=== PATIENT | female | born 1960 | race Caucasian/White ===

== ENCOUNTER → 2017-03-18 | Outpatient (CLI) | payer OTHER | LOC: FIMAGING 15:17 | PROVIDERS: ATTEND Family Medicine | DX: Z12.31 Encounter for screening mammogram for malignant neoplasm of breast (principal) | CPT/HCPCS: G0202 ==

== ENCOUNTER 2017-06-22 05:59 | Day surgery (SDC) | payer OTHER ==
[2017-06-22] MEDS ORDERED: LR 1,000 ML IV ONE (06:12)
[2017-06-22] MEDS ORDERED: LIDOCAINE 1% 2 ML INJ ID PRN (06:12)
[2017-06-22 06:21] VITALS: PULSE 59
--- NOTE | 2017-06-22 06:52 | PDGENHP ---
History & Physical Chief Complaint: Left thumb CMCJ arthritis History of Present Illness: Mahnaz is a pleasant 56 year old female with bilateral CMCJ pain. She has undergone conservative treatment and is now wishing to proceed with left thumb CMCJ arthroplasty. Pertinent Past, Social, Family History: Non-contributory Relevant Physical Exam: TTP overlying bilateral CMCJ (L>R). +CMCJ grind bilateral (L>R) Cardiorespiratory Assessment: CTAB Roberto. RRR
[2017-06-22] MEDS ORDERED: LIDOCAINE 1% 300 MG/30 ML SDV ONE (06:56)
[2017-06-22] MEDS ORDERED: BUPIVACAINE 0.5% 30 ML SDV ONE (06:57)
[2017-06-22] MEDS ORDERED: PROPOFOL 200 MG/20 ML VIAL ONE (06:59)
[2017-06-22] MEDS ORDERED: fentaNYL 100 MCG/2 ML INJ ONE ×3 (06:59→08:54)
[2017-06-22] MEDS ORDERED: ceFAZolin 2 GM/DEXTROSE 100 ML IV ONE (07:00)
[2017-06-22] MEDS ORDERED: LIDOCAINE 2% 5 ML SDV ONE (07:07)
[2017-06-22] MEDS ORDERED: ONDANSETRON 4 MG/2 ML VIAL ONE ×2 (07:07→11:13)
[2017-06-22] MEDS ORDERED: MIDAZOLAM 2 MG/2 ML VIAL ONE (07:07)
[2017-06-22] MEDS ORDERED: DEXAMETHASONE 4 MG/ML VIAL ONE (07:07)
[2017-06-22] MEDS ORDERED: MIDAZOLAM 2 MG/2 ML VIAL IVP ONE (07:08)
--- NOTE | 2017-06-22 07:11 | PDANEPAE ---
ANE History of Present Illness left thumb repair ANE Past Medical History - Cardiovascular History Hx Hypertension: No Hx Arrhythmias: No Hx Chest Pain: No Hx Coronary Artery / Peripheral Vascular Disease: No Hx CHF / Valvular Disease: No Hx Palpitations: No - Pulmonary History Hx COPD: No Hx Asthma/Reactive Airway Disease: No Hx Recent Upper Respiratory Infection: No Hx Oxygen in Use at Home: No Hx Sleep Apnea: No Sleep Apnea Screening Result - Last Documented: Negative - Neurologic History Hx Cerebrovascular Accident: No Hx Seizures: No Hx Dementia: No - Endocrine History Hx Diabetes: No Endocrine History Comment: Takes levothyroxine - Renal History Hx Renal Disorders: No - Neurological & Psychiatric Hx Hx Neurological and Psychiatric Disorders: No - Cancer History Hx Cancer: No - GI History GERD: no Hx Gastrointestinal Disorders: No - Other Health History Other Health History: none - Chronic Pain History Chronic Pain: No - Surgical History Prior Surgeries: spinal injection, L4L5 lami ANE Review of Systems Review of Systems: - Exercise capacity METS (RN): 5 METS ANE Patient History - Allergies Allergies/Adverse Reactions: amoxicillin [Amoxicillin] Allergy (Mild, Verified 06/03/14 05:44) Rash - Home Medications Home medications: home medication list seen and reviewed Home Medications: Levothyroxine 06/03/14 [Last Taken 06/21/17] Valtrex 06/03/14 [Last Taken 06/22/17] Diclofenac Sodium 1% 05/25/17 [Last Taken 06/15/17] - NPO status NPO Since - Liquids (Date): 06/21/17 NPO Since - Liquids (Time): 23:00 NPO Since - Solids (Date): 06/21/17 NPO Since - Solids (Time): 18:00 - Anes Hx Anes Hx: no prior problems - Smoking Hx Smoking Status: Never smoked - Family Anes Hx Family Hx Anesthesia Complications: none ANE Labs/Vital Signs - Vital Signs Blood Pressure: 132/74 Heart Rate: 59 Respiratory Rate: 16 O2 Sat (%): 97 Height: 152.4 cm Weight: 47.627 kg ANE Physical Exam - Airway Neck exam: FROM Mallampati Score: Class 1 Mouth exam: normal dental/mouth exam - Pulmonary Pulmonary: no respiratory distress - Cardiovascular Cardiovascular: regular rate and rhythym - ASA Status ASA Status: II ANE Anesthesia Plan Anesthesia Plan: GA w LMA
[2017-06-22] MEDS ORDERED: NALOXONE HCL 0.4 MG/ML INJ IVP PRN (08:27)
[2017-06-22] MEDS ORDERED: OXYCODONE/APAP 5/325 TAB PO PRN (08:27)
[2017-06-22] MEDS ORDERED: PROMETHAZINE HCL 25 MG/ML INJ IVP PRN (08:27)
[2017-06-22] MEDS ORDERED: ALBUTEROL 3 ML DEYVIAL IH PRN (08:27)
[2017-06-22] MEDS ORDERED: LR 500 ML IV PRN (08:27)
[2017-06-22] MEDS ORDERED: ONDANSETRON 4 MG/2 ML VIAL IVP PRN (08:27)
--- NOTE | 2017-06-22 08:55 | POSTOPPROG ---
Post Op Note Date of Operation: 06/22/17 Surgeon: Joel Berman Dye Blender: Rosio Foster PA-C Anesthesia: GET(General Endotracheal) Pre-op Diagnosis: left thumb CMCJ arthritis Post-op Diagnosis: left thumb CMCJ arthritis Procedure: left thumb CMCJ arthroplasty with tightrope suspensionplasty Inf/Abcess present in the surg proc area at time of surgery?: No EBL: Minimal
[2017-06-22] MEDS: fentaNYL 100 MCG/2 ML INJ IVP PRN ×2 (08:56→09:04)
--- NOTE | 2017-06-22 08:56 | POSTANESTH ---
Post Anesthetic Evaluation Cardiovascular Status: Normal, Stable Respiratory Status: Normal, Stable Level of Consciousness/Mental Status: Can Participate in Eval Pain Control: Adequate, Prn Tx Ordered Nausea/Vomiting Control: Adequate, Prn Tx Ordered Complications Possibly Related to Anesthesia: None Noted
[2017-06-22] MEDS ORDERED: HYDROmorphONE/DILAUDID 1 MG/ML INJ ONE (09:11)
[2017-06-22] MEDS: HYDROmorphONE/DILAUDID 1 MG/ML INJ IVP PRN ×3 (09:14→10:02)
[2017-06-22 09:31] VITALS: TEMP 97.9
[2017-06-22] MEDS ORDERED: OXYCODONE/APAP 5/325 TAB ONE (10:44)
[2017-06-22 10:52] VITALS: RESP 14
[2017-06-22 12:07] VITALS: BP 100/70
[2017-06-22 12:09] VITALS: O2SAT 98
--- NOTE | 2017-06-23 02:23 | GOP ---
[f rep st] OPERATIVE REPORT DATE OF OPERATION: 06/22/2017 SURGEON: Joel Berman MD PREOPERATIVE DIAGNOSIS: Left thumb carpometacarpal joint arthritis. POSTOPERATIVE DIAGNOSIS: Left thumb carpometacarpal joint arthritis. PROCEDURE PERFORMED: Left thumb carpometacarpal joint arthroplasty with suture-button suspensionplas ty. FINDINGS: ESTIMATED BLOOD LOSS: 1 cc. DESCRIPTION OF PROCEDURE: This is a very pleasant, 56-year-old female, who underwent a left thumb CM C joint arthroplasty with suture-button suspensionplasty. CUSTOM BOOKBINDER: Rosio Foster PA-C COMPLICATIONS: None. IMPLANTS: Arthrex Mini TightRope with two 2.6 mm metallic buttons. TOURNIQUET TIME: 72 minutes at 250 mmHg. /[id number]/MODL
== END 2017-06-22 12:15 | disposition home or self-care (01) ==
LOC: FSGY 05:59
PROVIDERS: ATTEND Orthopaedic Surgery Hand Surgery
PROC: 0RRT0JZ Replacement of Left Carpometacarpal Joint with Synthetic Substitute, Open Approach (ICD-10-PCS; principal; 2017-06-22 07:15)
DX: M18.12 Unilateral primary osteoarthritis of first carpometacarpal joint, left hand (principal)
CPT/HCPCS: C1713; J0690; J1100; J1170; J2250; J2405; J2704; J3010

== ENCOUNTER 2017-06-27 23:06 | Emergency (ER) | payer OTHER ==
[2017-06-27 23:15] VITALS: BP 121/88; PULSE 94; RESP 20; TEMP 99.7; O2SAT 95
[2017-06-27] MEDS ORDERED: OXYCODONE/APAP 5/325 TAB PO ONE (23:39)
--- NOTE | 2017-06-27 23:44 | EDPHY ---
H & P Time Seen by Provider: 06/27/17 23:22 HPI/ROS: CHIEF COMPLAINT: Left buttock and low back pain x3 days HISTORY OF PRESENT ILLNESS: 56-year-old female with remote history lumbar laminectomy by Dr. Judson Soto complaining of 3 days of atraumatic left lumbar back pain, left buttock pain. No further radiculopathy. No incontinence no retention. No saddle anesthesia. No abdominal pain. No lightheadedness no dizziness. No fever or chills. No flu-like symptoms. No footdrop. PRIMARY CARE PROVIDER: Omari. REVIEW OF SYSTEMS: A ten point review of systems was performed and is negative with the exception of the items mentioned in the HPI PAST MEDICAL & SURGICAL HISTORY: Lumbar laminectomy SOCIAL HISTORY: nonsmoker no drug use PHYSICAL EXAM (Prior to examination, patient consented to physical exam, hands were washed and my usual and customary physical exam procedures followed) 1) GENERAL: Well-developed, well-nourished, alert and oriented. Appears uncomfortable when she is asked to move . 2) HEAD: Normocephalic, atraumatic 3) HEENT: Pupils equal, round, reactive to light bilaterally. Sclera anicteric. Nasopharynx, oropharynx, clear, no lesions. 4) NECK: Full range of motion, no meningeal signs. 5) LUNGS: Clear auscultation bilaterally, no wheezes, no rhonchi, no retractions. 6) HEART: Regular rate and rhythm, no murmur, no heave, no gallop. 7) ABDOMEN: No guarding, no rebound, no focal tenderness, negative McBurney's, negative Munoz's, negative Rovsing's, negative peritoneal sign, no palpable or pulsatile mass 8) MUSCULOSKELETAL: Moving all extremities, no focal areas of tenderness, no obvious trauma. No peripheral edema or discoloration. 9) BACK: tender to palpation left paraspinous muscle. No CVA tenderness, no midline vertebral tenderness, no fluctuance, no step-off, no obvious trauma, no visual or palpable abnormality. Patella, Achilles reflexes intact to bilateral strength 5/5 10) SKIN: No rash, no petechiae. 11) NEURO: Awake, alert, and oriented to person, place and time. Answers questions appropriately. There were no obvious focal neurologic abnormalities. No cerebellar dysfunction. Normal steady gait. Upper and lower extremities bilaterally with strength 5 / 5, reflexes 2+.. DIFFERENTIAL DIAGNOSIS: In no particular order, including but not limited to, fracture, sprain/strain, cauda equina, spinal infectious etiology. MEDICAL DECISION MAKING Patient evaluated by myself. I informed the patient that I have a lower index of suspicion for cauda equina, epidural abscess, epidural hematoma, lumbar myositis, diskitis, as the patient is neurologically intact in the lower extremities, has patella and Achilles reflexes intact and equal bilaterally, has no neurologic deficits, no incontinence, no retention, no midline pain, no fluctuance, afebrile, no flulike symptoms. Pain may be secondary to muscular strain, may be secondary to discogenic etiology. At this point I do not identify definitive indication for emergent MRI, however she may necessitate this on an outpatient basis. She has sufficient supply of opiate analgesics as she had hand surgery few days ago. I am prescribing her Lidoderm patches, Medrol Dosepak and Flexeril. Informed of the potential synergistic effects between the Flexeril and opiates and recommend she exercise caution, not drive, not operating machinery and similar. Patient given acute back pain precautions. Patient verbalizes understanding of discharge instructions. I believe her to be a competent decision-maker. All questions and concerns have been addressed by me. Ample opportunity for questions have been provided . The patient understands that this diagnosis is provisional and can never be 100 % accurate. Usual and customary warnings were given concerning the clinical impression and all the patient's questions were answered. The patient was instructed to return to the emergency department should her symptoms worsen or return, or develop any new symptoms, otherwise to followup as directed in discharge instructions. Smoking Status: Never smoked Constitutional: Initial Vital Signs Temperature (C) 37.6 C 06/27/17 23:12 Heart Rate 94 06/27/17 23:12 Respiratory Rate 20 06/27/17 23:12 Blood Pressure 121/88 H 06/27/17 23:12 O2 Sat (%) 95 06/27/17 23:12 O2 Delivery Mode Room Air Allergies/Adverse Reactions: amoxicillin [Amoxicillin] Allergy (Mild, Verified 06/27/17 23:12) Rash Home Medications: Medication Instructions Recorded Levothyroxine 06/03/14 Valtrex 06/03/14 Diclofenac Sodium 1% 05/25/17 Cyclobenzaprine [Flexeril 10 MG 10 mg PO TID #15 tab 06/27/17 (RX)] Lidocaine 5% [Lidoderm 5% Patch 1 ea TD BID #30 patch 06/27/17 (*)] methylPREDNISolone [Medrol Dose 4 mg PO DAILY #1 ea 06/27/17 Ernesto] MDM/Departure - Depart Disposition: Home, Routine, Self-Care Clinical Impression: Acute low back pain Qualifiers: Back pain laterality: left Sciatica presence: without sciatica Qualified Code(s ): M54.5 - Low back pain Condition: Good Instructions: Acute Low Back Pain (ED) Additional Instructions: Seek medical attention if you develop new or worsening pain, if you develop bladder or bowel dysfunction, numbness around your perineum, foot drop, or any other symptoms that concern you. Prescriptions: Cyclobenzaprine [Flexeril 10 MG (RX)] 10 mg PO TID #15 tab Lidocaine 5% [Lidoderm 5% Patch (*)] 1 ea TD BID #30 patch methylPREDNISolone [Medrol Dose Ernesto] 4 mg PO DAILY #1 ea Referrals: Nelsy Salcido MD [Primary Care Provider] - 1-2 days without fail Guille Soto MD [Medical Doctor] - 1-2 days without fail
== END 2017-06-27 23:53 | disposition home or self-care (01) ==
DX: M54.5 Low back pain (principal)

== ENCOUNTER → 2017-08-19 | Outpatient (CLI) | payer OTHER ==
[~2017-08-19] MED LIST: GADOBUTROL 10 ML VIAL IVP ONE
== END ==
LOC: FIMAGING 19:09
PROVIDERS: ATTEND Physical Medicine & Rehabilitation
DX: M43.16 Spondylolisthesis, lumbar region (principal); M12.88 Other specific arthropathies, not elsewhere classified, other specified site
CPT/HCPCS: A9585

== ENCOUNTER 2017-09-09 05:15 | Day surgery (SDC) | payer OTHER ==
[2017-09-09] MEDS ORDERED: LIDOCAINE 1% 2 ML INJ ID PRN (05:45)
[2017-09-09] MEDS ORDERED: LR 1,000 ML IV ONE (05:45)
[2017-09-09 06:22] VITALS: PULSE 74
[2017-09-09] MEDS ORDERED: ceFAZolin 2 GM/SWFI 2 GM/20 ML SYR IVP ONE (06:48)
--- NOTE | 2017-09-09 06:50 | PDHPUP ---
History & Physical Update H&P update statement: This history and physical update is based on an assessment of the patient which was completed after admission or registration (within 24 hours), but prior to the surgery/procedure. RRR CTAB
[2017-09-09] MEDS ORDERED: MIDAZOLAM 2 MG/2 ML VIAL IVP ONE (06:52)
[2017-09-09] MEDS ORDERED: BUPIVACAINE 0.5% 30 ML SDV ONE (06:54)
[2017-09-09] MEDS ORDERED: LIDOCAINE 1% 300 MG/30 ML SDV ONE (06:54)
--- NOTE | 2017-09-09 06:54 | PDANEPAE ---
ANE History of Present Illness 57 year old female for right thumb CMC arthroplasty. ANE Past Medical History - Cardiovascular History Hx Hypertension: No Hx Arrhythmias: No Hx Chest Pain: No Hx Coronary Artery / Peripheral Vascular Disease: No Hx CHF / Valvular Disease: No Hx Palpitations: No - Pulmonary History Hx COPD: No Hx Asthma/Reactive Airway Disease: No Hx Recent Upper Respiratory Infection: No Hx Oxygen in Use at Home: No Hx Sleep Apnea: No Sleep Apnea Screening Result - Last Documented: Negative - Neurologic History Hx Cerebrovascular Accident: No Hx Seizures: No Hx Dementia: No - Endocrine History Hx Diabetes: No Hypothyroid: Yes Hyperthyroid: No Obesity: no Endocrine History Comment: Takes levothyroxine - Renal History Hx Renal Disorders: No - Neurological & Psychiatric Hx Hx Neurological and Psychiatric Disorders: No - Cancer History Hx Cancer: No - GI History GERD: no Hx Gastrointestinal Disorders: No - Other Health History Other Health History: none - Chronic Pain History Chronic Pain: No - Surgical History Prior Surgeries: spinal injection, L4L5 lami ANE Review of Systems Review of systems is: negative Review of Systems: - Exercise capacity Exercise capacity: >=4 METS METS (RN): 4 METS ANE Patient History - Allergies Allergies/Adverse Reactions: amoxicillin [Amoxicillin] Allergy (Mild, Verified 06/27/17 23:12) Rash - Home Medications Home medications: home medication list seen and reviewed Home Medications: Levothyroxine 06/03/14 [Last Taken 06/21/17] Herbals/Supplements -Info Only 08/11/17 [Last Taken Unknown] Meloxicam 08/11/17 [Last Taken Unknown] - NPO status NPO Status: no food or drink >8 hours NPO Since - Liquids (Date): 09/08/17 NPO Since - Liquids (Time): 23:00 NPO Since - Solids (Date): 09/08/17 NPO Since - Solids (Time): 17:00 - Anes Hx Anes Hx: post operative nausea - Smoking Hx Smoking Status: Never smoked Marijuana use: No - Alcohol Use Alcohol Use: Occasionally - Family Anes Hx Family Anes Hx: neg - N/A Family Hx Anesthesia Complications: none ANE Labs/Vital Signs - Vital Signs Vital Signs: reviewed preoperatively; see RN documention for details Blood Pressure: 110/86 Heart Rate: 74 Respiratory Rate: 16 O2 Sat (%): 100 Height: 152.4 cm Weight: 47.627 kg ANE Physical Exam - Airway Neck exam: FROM Mallampati Score: Class 2 Mouth exam: normal dental/mouth exam Mouth image: 1 - Caps/veneers - Pulmonary Pulmonary: no respiratory distress - Cardiovascular Cardiovascular: regular rate and rhythym - ASA Status ASA Status: II ANE Anesthesia Plan Anesthesia Plan: GA w LMA
[2017-09-09] MEDS ORDERED: LIDOCAINE 2% 5 ML SDV ONE (07:07)
[2017-09-09] MEDS ORDERED: PROPOFOL/EMULSION 500 MG/50 ML BOTTLE IV ONE (07:07)
[2017-09-09] MEDS ORDERED: fentaNYL 100 MCG/2 ML INJ ONE (07:07)
--- NOTE | 2017-09-09 07:07 | PDGENHP ---
History & Physical Chief Complaint: right thumb CMCJ arthritis History of Present Illness: Mahnaz has been complaining of right thumb CMCJ arthritis. She has undergone conservative treatment and is requiring surgical intervention Pertinent Past, Social, Family History: Non-contributory Relevant Physical Exam: TTP right CMCJ. +CMCJ grind Cardiorespiratory Assessment: RRR CTAB
[2017-09-09] MEDS ORDERED: DEXAMETHASONE 4 MG/ML VIAL ONE (07:41)
[2017-09-09] MEDS ORDERED: ONDANSETRON 4 MG/2 ML VIAL ONE (07:41)
[2017-09-09] MEDS ORDERED: NALOXONE HCL 0.4 MG/ML INJ IVP PRN (07:50)
[2017-09-09] MEDS ORDERED: ONDANSETRON 4 MG/2 ML VIAL IVP PRN (07:50)
[2017-09-09] MEDS ORDERED: HYDROCODONE/APAP 5/325 TAB PO PRN (07:50)
[2017-09-09] MEDS ORDERED: fentaNYL 100 MCG/2 ML INJ IVP PRN (07:50)
[2017-09-09] MEDS ORDERED: HYDROmorphONE/DILAUDID 1 MG/ML INJ IVP PRN (07:50)
[2017-09-09] MEDS ORDERED: LR 500 ML IV PRN (07:50)
[2017-09-09] MEDS ORDERED: KETOROLAC 30 MG/1 ML SDV ONE (08:50)
[2017-09-09 10:07] VITALS: TEMP 98.2
[2017-09-09 10:25] VITALS: BP 102/76; O2SAT 95
[2017-09-09 10:32] VITALS: RESP 16
--- NOTE | 2017-09-09 21:21 | POSTANESTH ---
Post Anesthetic Evaluation Cardiovascular Status: Normal, Stable, Similar to Pre-Op Cond Respiratory Status: Normal, Stable, Similar to Pre-op Cond. Level of Consciousness/Mental Status: Can Participate in Eval, Alert and Oriented Pain Control: Adequate, Prn Tx Ordered Nausea/Vomiting Control: Adequate, Prn Tx Ordered Complications Possibly Related to Anesthesia: None Noted
--- NOTE | 2017-09-10 03:36 | GOP ---
[f rep st] OPERATIVE REPORT PATIENT NAME: FREDDIE COLBY DATE OF SERVICE: 09/09/17 PATIENT DATE OF : 1960 SURGEON: Joel Berman M.D. VEHICLE COST ENGINEER: Rosio Foster PA-C Mrs. Pringle assistance was medically necessary for patient positioning and the retraction of vital structures. ANESTHESIA: General / Regional anesthesia by surgeon PRE-OPERATIVE DIAGNOSES: Right thumb carpometacarpal joint arthritis (ICD-10 code M13.849 Hand arthritis ) POST-OPERATIVE DIAGNOSES: Right thumb carpometacarpal joint arthritis (ICD-10 code M13.849 Hand arthritis ) OPERATIVE PROCEDURES: CPT code 84355 -- Carpometacarpal joint interposition arthroplasty CPT code 98228 -- Carpectomy of one bone (trapezium) CPT code 64712 -- Transfer or transplant of tendon, CMC area or dorsum of hand CPT code 15071 -- Insertion of pin for skeletal traction CPT code 66986 -- Fluoroscopy by surgeon up to one hour CPT code 96028 -- Application of a short arm splint Modifier 47 -- Regional anesthesia by surgeon EBL: 0.1cc COMPLICATIONS: None TOURNIQUET TIME: 71 minutes at 250 mmHg IMPLANTS: Arthrex mini Tightrope with two 2.6mm metallic buttons BRIEF CLINICAL NOTE: This is a very pleasant 56 year old female with a significant history for right thumb carpometacarpal joint arthritis. As such, I have discussed the risks, benefits, alternatives, and complications associated with both non-operative (specifically, observation, splinting, hand therapy, and corticosteroid injections) and operative (specifically, right thumb trapeziectomy with carompetacarpal joint arthroplasty and suture button suspensionplasty) forms of treatment. The patient fully understood the risks, benefits, alternatives, and complications associated with both forms of treatment and wished to proceed with operative intervention as outlined above. The patient has signed the informed consent form for surgery. OPERATIVE NOTE: On the day of surgery, all of the patients questions were answered. The patient was then transferred from the pre-operative area into the operating room and a formal, Time-Out procedure was performed. The patient was identified by name, medical record number, social security number, and date of . In addition, the patients right upper extremity was identified as the correct portion of the patients body for surgery with the patients right thumb being identified as the correct portion of that extremity for surgery. The anesthesia team administered pre-operative antibiotics for prophylaxis. The brachium was then padded with webril and tourniquet was applied. The extremity was then prepped and draped in the normal sterile fashion. A sterile marking pen was then utilized to devendra out a curvilinear incision overlying the dorsal aspect of the thumb CMC joint. In addition, a second incision was marked out overlying the dorsal and ulnar aspect of the index metacarpal. An Esmarch was then utilized to exsanguinate the upper extremity and the tourniquet was insufflated to 250mm Hg. A number 15 blade was then used to incise the skin overlying the thumb CMC joint. Meticulous hemostasis was obtained in the subcutaneous plane. Several branches of superficial radial sensory nerve were identified and protected. In addition, the tendons of the first dorsal compartment as well as the deep branch of the radial artery and its venae comitantes were also identified and protected. Next, a new number 15 blade was then used to make a longitudinal capsulotomy of the thumb CMC joint. The trapezium was then exposed in its entirety utilizing a number 15 blade and a 69 [place] blade. Next, an osteotome and a needle nose rongeur was utilized to perform a complete trapeziectomy. Following this, the incision overlying the dorsal aspect of the index metacarpal was then made utilizing a number 15 blade. Once again, several branches of the superficial branch of the radial sensory nerve were identified and protected. In addition, the extensor tendons to the index finger were also identified and protected. Following this, the periosteum overlying the dorsal aspect of the index metacarpal was then split longitudinally with a #15 blade. The periosteum was then elevated only along the ulnar aspect of the index metacarpal. Next the 1.1 mm guidewire for the Arthrex mini TightRope was then advanced from the thumb metacarpal base across the first webspace and into the index metacarpal in a anne-cortical fashion, exiting along the ulnar aspect of the index metacarpal. The position of the C-wire was then confirmed utilizing C- arm fluoroscopy in both the PA and lateral planes. Following this, the guidewire was then fully advanced and the Arthrex mini TightRope was threaded through the Nitinol loop and the TightRope was then threaded through the hole that had been created in the thumb metacarpal base and the index metacarpal base. At this point, the tension on the TightRope was preliminarily set with two knots. Following this, live intraoperative C-arm fluoroscopy was then utilized to confirm that the patient had full radial abduction, full palmar abduction, and full opposition. In addition, fluoroscopy demonstrated no impingement between the thumb metacarpal base and the index metacarpal base. In addition, there was no impingement between the thumb metacarpal base and the distal pole of the scaphoid with axial loading of the thumb. Thus, several additional knots were placed to secure the TightRope permanently at the selected length. Static C-arm images were then obtained in both the PA and lateral planes and they were saved and printed for documentation purposes. Following this, both wounds were then copiously irrigated with sterile normal saline. The periosteum overlying the index metacarpal was then re-approximated utilizing 3- 0 Vicryl sutures. Next, one slip of the APL was transferred to the FCR to serve as an interposition. The capsule of the CMC joint was then re- approximated utilizing 2-0 Vicryl sutures. The subcutaneous plane for both wounds was re-approximated utilizing 3-0 Vicryl sutures and the skin was re- approximated utilizing a running 4-0 Monocryl subcuticular stitch for both incisions. Following this, the skin was then cleaned with sterile normal saline and dried. Dermabond was then applied to both incisions. A mixture of 1 % lidocaine and 0.5% Marcaine was then utilized to perform regional blocks of both operative sites. Xeroform gauze dressings were then applied followed by a dry sterile dressing followed by a short-arm thumb spica splint. Once the short -arm thumb spica splint was completely hardened, the tourniquet was deflated. All fingers and the thumb demonstrated brisk capillary refill after the tourniquet had been deflated. The patient was then reversed from anesthesia and transferred from the operating room table to the postoperative gurney and transferred from the operating room to the PACU in stable condition. POST-OPERATIVE PLAN: The patient will remain in the current splint and dressing for the next 2 weeks. I will see the patient in the office in 2 weeks. During this visit, the original splint will be removed, the incisions will be examined, and the patient will be transitioned into short-arm thumb spica orthoplast which will only be worn at night for an additional 4 weeks. /[id number]/MODL MTDD
== END 2017-09-09 10:57 | disposition home or self-care (01) ==
LOC: FSGY 05:15
PROVIDERS: ATTEND Orthopaedic Surgery Hand Surgery
PROC: 0RU Upper Joints, Supplement (ICD-10-PCS; principal; 2017-09-09 07:15)
PROC: [UNRECOGNIZED PROCEDURE] (principal; 2017-09-09 07:15)
PROC: 0PTM0ZZ Resection of Right Carpal, Open Approach (ICD-10-PCS; principal; 2017-09-09 07:15)
DX: M13.841 Other specified arthritis, right hand (principal); M54.5 Low back pain
CPT/HCPCS: C1713; J0690; J1100; J1885; J2250; J2405; J2704; J3010

== ENCOUNTER → 2017-12-14 | Outpatient (CLI) | payer OTHER | LOC: FIMAGING 18:13 | PROVIDERS: ATTEND Physician Assistant | DX: Z09 Encounter for follow-up examination after completed treatment for conditions other than malignant neoplasm (principal); M85.441 Solitary bone cyst, right hand; Z98.890 Other specified postprocedural states ==

== ENCOUNTER → 2018-11-15 | Outpatient (CLI) | payer OTHER | LOC: FIMAGING 12:17 | PROVIDERS: ATTEND Family Medicine | DX: Z12.31 Encounter for screening mammogram for malignant neoplasm of breast (principal); R92.2 Inconclusive mammogram ==

== ENCOUNTER → 2018-12-20 | Outpatient (CLI) | payer OTHER | LOC: FIMAGING 13:55 | PROVIDERS: ATTEND Family Medicine | DX: R92.8 Other abnormal and inconclusive findings on diagnostic imaging of breast (principal) ==